=== PATIENT | female | born 1935 | race Caucasian/White ===

== ENCOUNTER 2016-06-14 08:04 | Emergency (ER) | payer MEDICARE ==
--- NOTE | 2016-06-18 23:07 | ER ---
ADMIT: 06/14/2016 RM/LOC: ER [facility] MR#: [id number] [address] [id number] CLIFFORD RODGERSS Richard [address] [place] [address] Emergency Room Report SEX: F AGE: 81 : 1935 DATE: 06/14/2016 CHIEF COMPLAINT: Low back pain. HISTORY OF PRESENT ILLNESS: This is a pleasant 81-year-old female, who presents to the Emergency Department complaining of increased low back pain for the past 4 days. The patient does have a significant history of rheumatoid arthritis and chronic back pain secondary to arthritis and scoliosis. The patient states for the past 4 days, her pain has gotten acutely worse. Denies any recent injury. States she was trying to get up to the toilet this morning when she noticed increased pain about her right low back and her butt cheek. The patient describes it as a dull aching pain when resting, but sharp with movement. Admits to history of chronic constipation. Denies any episodes of loss of bowel or bladder function or saddle anesthesia. She continues to ambulate with a wheeled walker with some pain. She states she uses meloxicam daily as well as some other treatment for rheumatoid arthritis. She does have tramadol at home. States she has not used this or any other pain medications today. COURSE IN THE EMERGENCY ROOM: Patient was seen and examined. Significant for point tenderness to the muscle belly of the low back paraspinal musculature. Neurovascularly patient was intact. Motor was within normal limits. Reflexes were intact. No evidence of saddle anesthesia. The patient was given 5 mg of Valium p.o. as well as tramadol 50 mg p.o. The patient was evaluated again, stating her pain is much improved. She is resting comfortably. IMPRESSION: 1. Low back strain. 2. History of chronic rheumatoid arthritis. DISPOSITION: The patient was told to use Tylenol as needed for pain as well as to use her previously prescribed tramadol for breakthrough pain as needed. She was encouraged to stay active as any decline in her physical activity may lead to worsening of her symptoms. She is to continue all her home medications as previously prescribed. She is to use moist heat or ice to her preference as needed for pain. She is to follow up with Dr. Ellis if she is not improving and of course return with any worsening or concerning symptoms. Questions were sought and answered to the best of my ability to her satisfaction. She was discharged in stable condition. TOMEKA Brewer / Dc Almonte MD / devoral JOB #: [id number] CC: Dc Almonte MD, Attending Physician Georgi Ellis MD, Family Physician
== END 2016-06-14 11:15 | disposition home or self-care (01) ==
LOC: ER 08:04
DX: S39.012A Strain of muscle, fascia and tendon of lower back, initial encounter (principal); M06.9 Rheumatoid arthritis, unspecified; Z79.899 Other long term (current) drug therapy